=== PATIENT | female | born 1955 | race Two or more races ===

== ENCOUNTER 2023-11-07 11:48 | Inpatient (IN) | payer OTHER ==
[~2023-11-07] VITALS: Ht 162.6 cm; Wt 106.0 kg
[2023-11-07] MEDS: SODIUM CHLORIDE 0.9% 1,000 ML IV ONE (12:55)
[2023-11-07 12:57] LABS: Urine Bacteria None Seen /hpf (None Seen)
[2023-11-07] MEDS: AMIODARONE BOLUS KIT 100 ML IV ONE ×2 (13:01→16:30)
[2023-11-07 13:04] LABS: Basophils # (auto) 0.1 10 ^3/uL (0-0.2); Basophils % (auto) 0.9 % (0.0-2.0); Eosinophils # (auto) 0.1 10 ^3/uL (0-0.8); Eosinophils % (auto) 0.7 % (0.0-7.0); Hematocrit 45.2 % (36.0-46.0); Hemoglobin 15.1 g/dL (12.2-16.2); Lymphocytes # (auto) 2.5 10 ^3/uL (0.4-5.4); Lymphocytes % (auto) 21.1 % (10.0-50.0); Mean Corpuscular Hemoglobin 28.5 pg (28.0-32.0); Mean Corpuscular Hgb Conc. 33.3 g/dL (32.0-36.0); Mean Corpuscular Volume 85.4 fL (80.0-100.0); Monocytes # (auto) 1.1 10 ^3/uL (0-1.3); Monocytes % (auto) 9.4 % (0.0-12.0); Neutrophils # (auto) 7.9 10 ^3/uL (1.6-8.6); Neutrophils % (auto) 67.9 % (37.0-80.0); Red Cell Distribution Width 15.6 % (11.8-14.3); White Blood Cell 11.7 10^3/uL (4.4-10.8)
[2023-11-07 13:16] LABS: Urine Blood Negative /uL (Negative); Urine Clarity Clear (Clear); Urine Color Yellow (Yellow); Urine Protein, UAD TRACE (Negative); Urine Specific Gravity 1.026 (1.001-1.035); Urine Urobilinogen Normal (Negative); Urine WBC 2 /hpf (0 - 5); Urine pH 5.5 (5.0-9.0)
[2023-11-07 13:21] LABS: INR 1.01 (0.9-1.15); Partial Thromboplastin Time 27.5 SEC (24.5-34.5); Prothrombin Time 10.6 sec (9.3-11.8)
[2023-11-07 13:28] LABS: Amphetamine Screen, Urine Neg (NEGATIVE); Barbiturate Scree,Urine Neg (NEGATIVE); Benzodiazephine Screen, Urine Neg (NEGATIVE); Cannabinoid Screen, Urine Neg (NEGATIVE); Cocaine Screen, Urine Neg (NEGATIVE); Opiate Scree,Urine Neg (NEGATIVE); Phencyclidine Screen, Urine Neg (NEGATIVE)
[2023-11-07 13:29] LABS: Alanine Aminotransferase 24 U/L (7-40); Alkaline Phosphatase 88 U/L (46-116); Anion Gap 9 (5-15); Aspartate Aminotransferase 20 U/L (13-40); Blood Urea Nitrogen 12 mg/dL (9-23); Calcium 9.7 mg/dL (8.5-10.1); Carbon Dioxide 26 mmol/L (20-30); Chloride 103 mmol/L (98-107); Glucose 138 mg/dL (74-106); Potassium 3.5 mmol/L (3.5-5.1); Sodium 138 mmol/L (136-145)
[2023-11-07 13:30] LABS: Albumin 4.5 g/dL (3.2-4.8); Bilirubin, Total 0.3 mg/dL (0.2-1.0); Total Protein 7.2 g/dL (5.7-8.2)
[2023-11-07] MEDS: dilTIAZem 25 MG/5 ML VIAL IV ONE ×3 (13:41→14:13)
[2023-11-07 13:54] LABS: Lactic Acid w/Reflex 2.6 mmol/L (0.4-2.0)
[2023-11-07] MEDS: ADENOSINE 6 MG/2 ML INJ IV ONE ×3 (14:14→14:15)
[2023-11-07] MEDS: IOHEXOL 350 MG/ML 100ML IJ ONE (14:26)
[2023-11-07] MEDS: AMIODARONE 450mg/250ml AE 250 ML IV SCH ×2 (14:26→20:26)
[2023-11-07] MEDS: ENOXAPARIN SOD 100 MG/1 ML SYRINGE SC ONE (16:30)
[2023-11-07] MEDS: METOPROLOL TARTRATE 1MG/1ML-5ML VIAL IV ONE ×3 (16:30→17:30)
[2023-11-07 19:30] VITALS: PULSE 73; RESP 20; O2SAT 95
[2023-11-07 19:36] VITALS: PULSE 64; PULSE 72; RESP 20; O2SAT 96
[2023-11-07 21:00] VITALS: O2SAT 96
[2023-11-07] MEDS ORDERED: DEXTROSE (50%) 50ML SYRG IV PRN (21:00)
[2023-11-07] MEDS ORDERED: ACETAMINOPHEN 325 MG TAB PO PRN (21:00)
[2023-11-07] MEDS ORDERED: MORPHINE SULFATE INJ 2 MG/ml SYRG IV PRN (21:00)
[2023-11-07] MEDS ORDERED: ONDANSETRON HCL 4 MG/2 ML VIAL IV PRN (21:00)
[2023-11-07] MEDS ORDERED: ALBUTEROL SULF 2.5 MG/0.5ML(0.5%) NEB SOLN NEB PRN (21:00)
[2023-11-07] MEDS ORDERED: NITROGLYCERIN 0.4 MG SL TAB SL PRN (21:00)
[2023-11-07] MEDS: ATORVASTATIN 20 MG TAB PO SCH (22:24)
[2023-11-07] MEDS: ACCU-CHEK COMFORT CURVE STRIP VI SCH (22:28)
[2023-11-07] MEDS: InsuLIN REG 1unit/0.01ml Soln (100units/ml) SC SCH (22:47)
[2023-11-07 22:57] VITALS: BP 97/47; PULSE 73; RESP 18; TEMP 98.1; O2SAT 96
[2023-11-08] VITALS (11 sets, daily range): BP systolic 118–128; BP diastolic 47–80; PULSE 69–83; RESP 15–20; TEMP 97.8–98.6; O2SAT 92–96
[2023-11-08] MEDS ORDERED: AMLO1TAB22 PO (05:12)
[2023-11-08] MEDS ORDERED: HYDR25TA5 PO (05:13)
[2023-11-08] MEDS ORDERED: METF-371 PO (05:14)
[2023-11-08] MEDS ORDERED: INSU1INJ4 SC (05:16)
[2023-11-08] MEDS ORDERED: SEMA2INJ3 SC (05:18)
[2023-11-08 07:23] LABS: Chloride 103 mmol/L (98-107); Potassium 3.2 mmol/L (3.5-5.1); Sodium 140 mmol/L (136-145)
[2023-11-08 07:24] LABS: Anion Gap 7 (5-15); Calcium 9.4 mg/dL (8.5-10.1); Carbon Dioxide 30 mmol/L (20-30)
[2023-11-08 07:29] LABS: Glucose 145 mg/dL (74-106)
[2023-11-08 07:30] LABS: BUN/Creatinine Ratio 16.3 (10.0-20.0); Blood Urea Nitrogen 13 mg/dL (9-23)
[2023-11-08] MEDS: ASPirin 81 mg TAB PO SCH (09:45)
[2023-11-08] MEDS: ENOXAPARIN SOD 40 MG/0.4 ML SYRINGE SC SCH (09:45)
[2023-11-08] MEDS: amLODIPine BESYLATE 5 MG TAB PO SCH (09:46)
[2023-11-08] MEDS: hydroCHLOROthiazide 25 MG TAB PO SCH (09:46)
[2023-11-08] MEDS: POTASSIUM EFFERVESENT TAB 25 MEQ PO ONE (12:55)
[2023-11-08] MEDS: AMIODARONE HCL 200 MG TAB PO ONE (12:55)
[2023-11-08 13:19] LABS: Magnesium 1.8 mg/dL (1.6-2.6)
[2023-11-08] MEDS: MAGNESIUM SULFATE 1GM/100ML 100 ML IV ONE (14:46)
[2023-11-08] MEDS: METOPROLOL TARTRATE 25 MG TAB PO SCH (21:30)
[2023-11-08] MEDS: AMIODARONE HCL 200 MG TAB PO SCH (21:31)
[2023-11-08] MEDS: ENOXAPARIN SOD 100 MG/1 ML SYRINGE SC SCH (21:34)
[2023-11-09 01:00] VITALS: BP 104/42; PULSE 71; RESP 20; TEMP 97.9; O2SAT 92
[2023-11-09 01:23] VITALS: O2SAT 96
[2023-11-09 05:00] VITALS: BP 140/89; PULSE 73; RESP 20; TEMP 97.9; O2SAT 91
[2023-11-09 07:16] LABS: Chloride 104 mmol/L (98-107); Potassium 3.7 mmol/L (3.5-5.1); Sodium 138 mmol/L (136-145)
[2023-11-09 07:17] LABS: Anion Gap 7 (5-15); Carbon Dioxide 27 mmol/L (20-30)
[2023-11-09 07:18] LABS: Calcium 9.7 mg/dL (8.7-10.4)
[2023-11-09 07:22] LABS: BUN/Creatinine Ratio 13.1 (10.0-20.0); Blood Urea Nitrogen 8 mg/dL (9-23); Glucose 146 mg/dL (74-106)
[2023-11-09 07:35] LABS: Magnesium 1.9 mg/dL (1.6-2.6)
[2023-11-09 08:00] VITALS: PULSE 75; PULSE 77; RESP 18; O2SAT 94
[2023-11-09 09:00] VITALS: BP 114/56; PULSE 72; RESP 18; TEMP 98.2; O2SAT 94
[2023-11-09] MEDS ORDERED: MET25T PO ×2 (11:27→12:37)
[2023-11-09] MEDS ORDERED: APIX5TAB PO ×2 (11:27→12:37)
[2023-11-09] MEDS ORDERED: AMIO200T33 PO ×2 (11:27→12:37)
[2023-11-09] MEDS ORDERED: ATOR20TA50 PO ×2 (11:27→12:37)
[2023-11-09 12:06] VITALS: BP 114/56; PULSE 72; TEMP 36.8
== END 2023-11-09 13:11 | disposition home or self-care (01) | DRG 280 ==
LOC: ER 11:48 → EDBD 11:48 → TELE-WESTW 21:07 → TELE 21:07 → TELE-WESTW 11-08 04:05
PROVIDERS: ADMIT Nurse Practitioner; ATTEND Internal Medicine
DX: I48.92 Unspecified atrial flutter (principal); I50.31 Acute diastolic (congestive) heart failure; I21.A1 Myocardial infarction type 2; E87.6 Hypokalemia; E66.01 Morbid (severe) obesity due to excess calories; R91.1 Solitary pulmonary nodule; E78.5 Hyperlipidemia, unspecified; E11.9 Type 2 diabetes mellitus without complications; K76.0 Fatty (change of) liver, not elsewhere classified; J45.909 Unspecified asthma, uncomplicated; I11.0 Hypertensive heart disease with heart failure; M81.0 Age-related osteoporosis without current pathological fracture; Z87.891 Personal history of nicotine dependence; Z96.651 Presence of right artificial knee joint; Z90.710 Acquired absence of both cervix and uterus; Z82.3 Family history of stroke; Z79.4 Long term (current) use of insulin; Z82.49 Family history of ischemic heart disease and other diseases of the circulatory system; Z68.39 Body mass index [BMI] 39.0-39.9, adult
CPT/HCPCS: 36415; 71045; 71275; 80048; 80053; 80061; 80307; 81001; 82962; 83036; 83605; 83735; 83880; 84443; 84484; 85025; 85379; 85610; 85730; 87040; 93005; 93306; 96365; G0378; J0153; J1815